=== PATIENT | male | born 1935 | race Caucasian/White ===

== ENCOUNTER → 2017-12-20 | Outpatient (CLI) | payer MEDICARE, MEDICAID ==
[~2017-12-20] MED LIST: ASPI-1159 PO; BENA20TA3 PO; SIMV20TA6 PO
== END | disposition home or self-care (01) ==
LOC: CARD 10:47
PROVIDERS: ATTEND Psychiatry & Neurology Neurology
DX: H81.10 Benign paroxysmal vertigo, unspecified ear (principal)